=== PATIENT | female | born 1995 | race Caucasian/White ===

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

== ENCOUNTER → 2017-05-13 | Outpatient (CLI) | payer BC, OTHER ==
[~2017-05-13] MED LIST changes: -AUGM875T27 PO; +AUGM875T28 PO; -BUPIVACAINE/EPIN 0.25% 30 ML VIAL As Ordered ONE; +CIPR-249 PO; -CIPR500T89 PO; -CONRAY-60 60% 50ML VIAL (Q9961) As Ordered ONE; -GLUCAGON FOR INJ 1 MG VIAL (J1610) As Ordered ONE; -GLYCOPYRROLATE INJ 0.2 MG/ML 2 ML VIAL As Ordered ONE; -HYDROmorphone HCL 2 MG/ML 1ML VIAL (J1170) As Ordered ONE; +IBUP1TAB7 PO; -IBUP800T23 PO; -KETOROLAC 30 MG/ML VIAL (J1885) IV PRN; -KETOROLAC 60 MG/2 ML VIAL (J1885) As Ordered ONE; -LIDOCAINE 2% INJ 100 MG/5 ML SDV (FOR ANES.) As Ordered ONE; -LR 1,000 ML IV SCH; -METOCLOPRAMIDE INJ 10MG/2ML VIAL (J2765) IV PRN; -MIDAZOLAM INJ 2 MG/2 ML VIAL (J2250) As Ordered ONE; -MORPHINE 2 MG/ML 1ML SYRINGE IV PRN; -NEOSTIGMINE 1MG/ML 5 ML SYRINGE (J2710) As Ordered ONE; -NORCO, ANEXSIA 5/325MG TABLET (HYDROcodone/ACETAMINOPHEN) PO PRN; -ONDANSETRON 4MG/2ML VIAL (J2405) As Ordered ONE; -ONDANSETRON 4MG/2ML VIAL (J2405) IV PRN; -PERCOCET 5MG/325MG TAB PO PRN; +PHEN-500 PO; -PHEN1TAB80 PO; -PROA1AER INH; +PROAAER10 INH; -PROPOFOL 200 MG/20 ML VIAL As Ordered ONE; -ROCURONIUM BROMIDE 50 MG/5 ML VIAL As Ordered ONE; -ceFAZolin SOD 1 GM in D5W MINI-BAG PLUS 50 ML IV ONE; -fentaNYL 100 MCG/2 ML INJECTION (J3010) As Ordered ONE; -fentaNYL 100 MCG/2 ML INJECTION (J3010) IV PRN
== END ==
LOC: M OUTALCOH 08:01
PROVIDERS: ATTEND Psychiatry & Neurology Psychiatry
DX: F11.20 Opioid dependence, uncomplicated (principal)

== ENCOUNTER → 2017-07-16 | Outpatient (REF) | payer BC, OTHER ==
[2017-07-16 14:12] LABS: BASO % 0.5 % (0.0-1.0); EOS # 0.3 10^3/uL (0.0-0.50); EOS % 3.6 % (0.0-3.0); IMMATURE GRANULOCYTE % 0.2 % (0-0); LYMPH # 2.8 10^3/uL (1.5-6.5); MEAN CORPUSCULAR HEMOGLOBIN 29.7 pg (27.0-33.0); MEAN CORPUSCULAR HGB CONC 34.3 g/dl (32.0-36.5); MEAN CORPUSCULAR VOLUME 86.6 fl (80.0-96.0); MONO # 0.6 10^3/uL (0.0-0.8); MONO % 7.1 % (0.0-5.0); NEUTROPHILS % 56.6 % (36.0-66.0); PLATELET COUNT, AUTOMATED 289 10^3/uL (150-450); RED CELL DISTRIBUTION WIDTH 12.8 % (11.5-14.5); WHITE BLOOD COUNT 8.8 10^3/uL (4.0-10.0)
[2017-07-16 14:19] LABS: ALBUMIN 3.7 GM/DL (3.2-5.2); ALBUMIN/GLOBULIN RATIO 0.88 (1.00-1.93); ALKALINE PHOSPHATASE 93 U/L (45-117); ALT/SGPT 30 U/L (12-78); ANION GAP 8 MEQ/L (8-16); AST/SGOT 16 U/L (15-37); BILIRUBIN,TOTAL 0.5 MG/DL (0.2-1.0); BLOOD UREA NITROGEN 15 MG/DL (7-18); CALCIUM LEVEL 8.8 MG/DL (8.5-10.1); CARBON DIOXIDE LEVEL 27 MEQ/L (21-32); CHLORIDE LEVEL 104 MEQ/L (98-107); CREATININE FOR GFR 0.78 MG/DL (0.55-1.02); GLUCOSE, FASTING 91 MG/DL (70-105); POTASSIUM SERUM 4.1 MEQ/L (3.5-5.1); SODIUM LEVEL 139 MEQ/L (136-145); TOTAL PROTEIN 7.9 GM/DL (6.4-8.2)
[2017-07-16 16:11] LABS: ERYTHROCYTE SEDIMENTATION RATE 22 mm/hr (0-20)
[2017-07-17 10:54] LABS: CONTROL LINE MONO RF C INT CTR LINE PRESENT
[2017-07-18 00:07] LABS: Lyme Disease IgG/IgM Antibodie <0.91 ISR (0.00-0.90); Lyme Disease IgM Ab Quantitati <0.80 index (0.00-0.79)
== END ==
LOC: M LABDRWAD 12:51 → M LAB REF 12:51
PROVIDERS: ATTEND Physician Assistant Medical
DX: M79.1 Myalgia (principal)

== ENCOUNTER → 2017-09-09 | Day surgery (SDC) | payer BC ==
[~2017-09-09] VITALS: Ht 160 cm; Wt 102.5 kg
[~2017-09-09] MED LIST changes: +BUPIVACAINE/EPIN 0.5% 30 ML VIAL As Ordered ONE; +CEFAZOLIN SOD 1 GM in APPROPRIATE DILUENT 1 EA IV ONE; +GLYCOPYRROLATE INJ 0.2 MG/ML 2 ML VIAL As Ordered ONE; +IBUP-1114 PO; +KETOROLAC 30 MG/ML VIAL (J1885) IV SCH; +KETOROLAC 60 MG/2 ML VIAL (J1885) As Ordered ONE; +LR 1,000 ML IV ONE; +LR 1,000 ML IV SCH; +MIDAZOLAM INJ 2 MG/2 ML VIAL (J2250) As Ordered ONE; +MULT1TAB10 PO; +NEOSTIGMINE 10 MG/10 ML VIAL (J2710) As Ordered ONE; +NORCO, ANEXSIA 5/325MG TABLET (HYDROcodone/ACETAMINOPHEN) PO PRN; +ONDANSETRON 4MG/2ML VIAL (J2405) As Ordered ONE; +ONDANSETRON 4MG/2ML VIAL (J2405) IV PRN; +PERCOCET 5MG/325MG TAB As Ordered ONE; +PERCOCET 5MG/325MG TAB PO ONE; +PROPOFOL 500 MG/50 ML VIAL As Ordered ONE; +ROCURONIUM BROMIDE 50 MG/5 ML VIAL As Ordered ONE; +dexameTHASONE 4 MG/ML 1ML VIAL (J1100) As Ordered ONE; +fentaNYL 100 MCG/2 ML INJECTION (J3010) As Ordered ONE; +fentaNYL 100 MCG/2 ML INJECTION (J3010) IV PRN
[2017-09-09 08:09] LABS: CONTROL LINE UCG INT CTR LINE PRESENT
--- NOTE | 2017-09-09 09:43 | RO ---
DATE OF PROCEDURE: 09/09/2017 PREOPERATIVE DIAGNOSIS: Incisional hernia at the umbilicus. POSTOPERATIVE DIAGNOSIS: Incisional hernia at the umbilicus. PROCEDURE: Repair of incisional hernia with ventral patch. SURGEON: Dr. Emery Poe. SLOT OPERATIONS MANAGER: ANESTHESIA: General endotracheal anesthesia ESTIMATED BLOOD LOSS: Minimal. FLUID: Crystalloid. BRIEF PROCEDURE SUMMARY: The patient was brought to the operating room and was given general anesthesia. After adequate anesthesia and preoperative antibiotics were given, the patient was prepped and draped in usual sterile fashion. The patient had a previous supraumbilical midline incision that was vertical, however, as this point given the size of the fascial defect and the evidence of the hernia at the supraumbilical site, the curvilinear incision was made with skin knife. Electrocautery was used to cut through dermis and underlying subcutaneous tissue down to the fascia itself and circumferentially the hernia sac was transected using electrocautery. There was omentum incarcerated within the hernia itself which was ligated at its base with heavy Vicryl ties and reduced into the abdomen. The fascia then was closed after placing a ventral patch into the peritoneal cavity, making sure this was abutting the peritoneum posteriorly and the tails of mesh were sutured medially and laterally. The incision was closed vertically with three interrupted [id number] #0 Ethibond sutures and the umbilicus was sutured to the fascia and the dermis was closed with #3-0 Vicryl. #4-0 Vicryl was used to close the skin. Steri-Strips and a dry sterile dressing was applied. The patient was awakened, extubated, brought to recovery room awake, alert, hemodynamically stable. Sponge and needle counts correct times two.
[2017-09-09 12:00] VITALS: BP 122/77
== END | disposition home or self-care (01) ==
LOC: M SDC 07:21
PROVIDERS: ATTEND Surgery
DX: K43.2 Incisional hernia without obstruction or gangrene (principal); J45.909 Unspecified asthma, uncomplicated; R56.9 Unspecified convulsions; K21.9 Gastro-esophageal reflux disease without esophagitis; D64.9 Anemia, unspecified; R51 Headache; T88.59XD Other complications of anesthesia, subsequent encounter; Z79.3 Long term (current) use of hormonal contraceptives; Z72.0 Tobacco use

== ENCOUNTER 2017-10-23 11:29 | Emergency (ER) | payer BC, OTHER ==
[2017-10-23] MEDS: NS 1,000 ML IV (13:34)
[2017-10-23 13:57] LABS: HEMATOCRIT 39.8 % (36.0-47.0); HEMOGLOBIN 13.6 g/dl (12.0-16.0); MEAN CORPUSCULAR HEMOGLOBIN 29.5 pg (27.0-33.0); MEAN CORPUSCULAR HGB CONC 34.2 g/dl (32.0-36.5); MEAN CORPUSCULAR VOLUME 86.3 fl (80.0-96.0); PLATELET COUNT, AUTOMATED 168 10^3/uL (150-450); RED BLOOD COUNT 4.61 10^6/uL (4.00-5.40); RED CELL DISTRIBUTION WIDTH 12.8 % (11.5-14.5); WHITE BLOOD COUNT 4.7 10^3/uL (4.0-10.0)
[2017-10-23 14:01] LABS: POSITIVE MORPH POS FLAG
[2017-10-23 14:02] LABS: ADD MANUAL DIFFER YES; DIFF SLIDE NUMBER 244
[2017-10-23] MEDS: KETOROLAC 30 MG/ML VIAL (J1885) IV (14:05)
[2017-10-23] MEDS: ONDANSETRON 4MG/2ML VIAL (J2405) IV (14:05)
[2017-10-23 14:11] LABS: INR 0.96; PROTHROMBIN TIME 12.9 SECONDS (12.4-14.5)
[2017-10-23 14:20] LABS: CONTROL LINE HCG INT CTR LINE PRESENT; HCG, SERUM QUALITATIVE NEGATIVE (NEGATIVE)
[2017-10-23 14:27] LABS: ATYPICAL LYMPH 4 % (0-5); BASOPHILS 2 % (0-4); EOSINOPHILS 3 % (0-5); LYMPHOCYTES 42 % (16-52); MONOCYTES 6 % (0-8); NEUTROPHILS 43 % (35-75); PLATELET ESTIMATE NORMAL (NORMAL)
[2017-10-23 14:28] LABS: ALBUMIN 3.9 GM/DL (3.2-5.2); ALBUMIN/GLOBULIN RATIO 0.91 (1.00-1.93); ALKALINE PHOSPHATASE 100 U/L (45-117); ALT/SGPT 68 U/L (12-78); ANION GAP 7 MEQ/L (8-16); AST/SGOT 36 U/L (7-37); BILIRUBIN,DIRECT 0.2 MG/DL (0.0-0.2); BILIRUBIN,TOTAL 0.9 MG/DL (0.2-1.0); BLOOD UREA NITROGEN 8 MG/DL (7-18); CALCIUM LEVEL 8.9 MG/DL (8.5-10.1); CARBON DIOXIDE LEVEL 26 MEQ/L (21-32); CHLORIDE LEVEL 105 MEQ/L (98-107); CREATININE FOR GFR 0.88 MG/DL (0.55-1.30); GLUCOSE, FASTING 96 MG/DL (70-100); LIPASE 93 U/L (73-393); POTASSIUM SERUM 3.6 MEQ/L (3.5-5.1); SODIUM LEVEL 138 MEQ/L (136-145); TOTAL PROTEIN 8.2 GM/DL (6.4-8.2)
[2017-10-23 16:16] LABS: KETONE, URINE AUTO RFX NEGATIVE (NEGATIVE); LEUKOCYTE ESTERASE UR AUTO RFX 1+ (NEGATIVE); MUCUS, URINE RFX LARGE (NEGATIVE); NITRITE, URINE AUTO RFX NEGATIVE (NEGATIVE); RBC, URINE AUTO RFX 3 /HPF (0-3); SPECIFIC GRAVITY UR AUTO RFX 1.027 (1.002-1.035); SQUAM EPITHELIAL CELL UR AURFX 13 /HPF (0-6); WBC, URINE AUTO RFX 4 /HPF (0-3)
== END 2017-10-23 16:43 | disposition home or self-care (01) ==
LOC: M ED 11:29
DX: N39.0 Urinary tract infection, site not specified (principal); F17.200 Nicotine dependence, unspecified, uncomplicated
CPT/HCPCS: J2405

== ENCOUNTER 2017-11-11 18:14 | Emergency (ER) | payer BC, OTHER ==
[2017-11-11 19:38] LABS: HEMATOCRIT 34.8 % (36.0-47.0); HEMOGLOBIN 11.4 g/dl (12.0-16.0); MEAN CORPUSCULAR HEMOGLOBIN 29.8 pg (27.0-33.0); MEAN CORPUSCULAR HGB CONC 32.8 g/dl (32.0-36.5); MEAN CORPUSCULAR VOLUME 90.9 fl (80.0-96.0); PLATELET COUNT, AUTOMATED 153 10^3/uL (150-450); RED BLOOD COUNT 3.83 10^6/uL (4.00-5.40); RED CELL DISTRIBUTION WIDTH 15.3 % (11.5-14.5); WHITE BLOOD COUNT 7.9 10^3/uL (4.0-10.0)
[2017-11-11 19:39] LABS: ADD MANUAL DIFFER YES; DIFF SLIDE NUMBER 343; POSITIVE DIFF POS FLAG; POSITIVE MORPH POS FLAG
[2017-11-11 19:50] LABS: D-DIMER QUANT 848.3 ng/ml (<500)
[2017-11-11 20:02] LABS: ATYPICAL LYMPH 3 % (0-5); BANDS 1 % (< 11); EOSINOPHILS 2 % (0-5); LYMPHOCYTES 62 % (16-52); MONOCYTES 6 % (0-8); NEUTROPHILS 26 % (35-75)
[2017-11-11 20:03] LABS: PLATELET ESTIMATE NORMAL (NORMAL)
[2017-11-11 20:15] LABS: ALBUMIN 3.6 GM/DL (3.2-5.2); ALBUMIN/GLOBULIN RATIO 0.92 (1.00-1.93); ALKALINE PHOSPHATASE 95 U/L (45-117); ALT/SGPT 30 U/L (12-78); ANION GAP 9 MEQ/L (8-16); AST/SGOT 32 U/L (7-37); BILIRUBIN,TOTAL 0.9 MG/DL (0.2-1.0); BLOOD UREA NITROGEN 12 MG/DL (7-18); CALCIUM LEVEL 8.7 MG/DL (8.5-10.1); CARBON DIOXIDE LEVEL 26 MEQ/L (21-32); CHLORIDE LEVEL 107 MEQ/L (98-107); CREATININE FOR GFR 0.96 MG/DL (0.55-1.30); GLUCOSE, FASTING 86 MG/DL (70-100); POTASSIUM SERUM 3.8 MEQ/L (3.5-5.1); SODIUM LEVEL 142 MEQ/L (136-145); TOTAL PROTEIN 7.5 GM/DL (6.4-8.2)
[2017-11-11] MEDS ORDERED: ISOVUE-370 76% 100ML VIAL (Q9967) As Ordered (21:15)
[2017-11-11] MEDS: ALBUTEROL SULFATE 2.5 MG/0.5 ML INH NEB SOLN NEB (22:24)
[2017-11-11] MEDS: IBUPROFEN 600 MG TAB PO (22:38)
[2017-11-11] MEDS: PERCOCET 5MG/325MG TAB PO (22:39)
== END 2017-11-11 22:43 | disposition home or self-care (01) ==
LOC: M ED 18:14
DX: J45.909 Unspecified asthma, uncomplicated (principal); R91.8 Other nonspecific abnormal finding of lung field; R00.0 Tachycardia, unspecified; R06.02 Shortness of breath; F17.200 Nicotine dependence, unspecified, uncomplicated; Z79.3 Long term (current) use of hormonal contraceptives
CPT/HCPCS: Q9967

== ENCOUNTER 2018-03-08 14:16 | Emergency (ER) | payer OTHER, BC ==
[2018-03-08] MEDS: KETOROLAC TROMETHAMINE 10 MG TAB PO (15:48)
== END 2018-03-08 17:13 | disposition home or self-care (01) ==
LOC: M ED 14:16
DX: S93.401A Sprain of unspecified ligament of right ankle, initial encounter (principal); S80.01XA Contusion of right knee, initial encounter; V13.0XXA Pedal cycle driver injured in collision with car, pick-up truck or van in nontraffic accident, initial encounter; Y92.410 Unspecified street and highway as the place of occurrence of the external cause; J45.909 Unspecified asthma, uncomplicated; G47.33 Obstructive sleep apnea (adult) (pediatric); M54.9 Dorsalgia, unspecified; R56.9 Unspecified convulsions; Z91.030 Bee allergy status; Z79.899 Other long term (current) drug therapy
CPT/HCPCS: 71101

== ENCOUNTER 2018-05-08 19:38 | Emergency (ER) | payer BC, MEDICAID, SELFPAY ==
[2018-05-09 00:32] LABS: KETONE, URINE AUTO RFX NEGATIVE (NEGATIVE); LEUKOCYTE ESTERASE UR AUTO RFX NEGATIVE (NEGATIVE); MUCUS, URINE RFX LARGE (NEGATIVE); NITRITE, URINE AUTO RFX NEGATIVE (NEGATIVE); RBC, URINE AUTO RFX 1 /HPF (0-3); SPECIFIC GRAVITY UR AUTO RFX 1.029 (1.002-1.035); SQUAM EPITHELIAL CELL UR AURFX 2 /HPF (0-6); WBC, URINE AUTO RFX 4 /HPF (0-3)
[2018-05-09] MEDS: ONDANSETRON 4MG/2ML VIAL (J2405) IV ×2 (00:34)
[2018-05-09] MEDS: NS 1,000 ML IV ×2 (00:34)
[2018-05-09 00:39] LABS: BASO % 0.5 % (0.0-1.0); EOS # 0.2 10^3/uL (0.0-0.50); EOS % 2.1 % (0.0-3.0); HEMATOCRIT 37.3 % (36.0-47.0); HEMOGLOBIN 12.8 g/dl (12.0-15.5); IMMATURE GRANULOCYTE % 0.4 % (0-3.0); LYMPH # 3.9 10^3/uL (1.5-6.5); LYMPH % 50.7 % (24.0-44.0); MEAN CORPUSCULAR HEMOGLOBIN 30.3 pg (27.0-33.0); MEAN CORPUSCULAR HGB CONC 34.3 g/dl (32.0-36.5); MEAN CORPUSCULAR VOLUME 88.4 fl (80.0-96.0); MONO # 0.7 10^3/uL (0.0-0.8); MONO % 9.3 % (0.0-5.0); NEUTROPHILS # 2.8 10^3/uL (1.8-7.7); PLATELET COUNT, AUTOMATED 195 10^3/uL (150-450); RED BLOOD COUNT 4.22 10^6/uL (4.00-5.40); RED CELL DISTRIBUTION WIDTH 12.6 % (11.5-14.5); WHITE BLOOD COUNT 7.7 10^3/uL (4.0-10.0)
[2018-05-09 01:06] LABS: ALBUMIN 3.7 GM/DL (3.2-5.2); ALBUMIN/GLOBULIN RATIO 1.06 (1.00-1.93); ALKALINE PHOSPHATASE 62 U/L (45-117); ALT/SGPT 19 U/L (12-78); AMYLASE 39 U/L (25-115); ANION GAP 7 MEQ/L (8-16); AST/SGOT 9 U/L (7-37); BILIRUBIN,DIRECT 0.1 MG/DL (0.0-0.2); BILIRUBIN,TOTAL 0.7 MG/DL (0.2-1.0); BLOOD UREA NITROGEN 11 MG/DL (7-18); CALCIUM LEVEL 8.8 MG/DL (8.5-10.1); CARBON DIOXIDE LEVEL 29 MEQ/L (21-32); CHLORIDE LEVEL 109 MEQ/L (98-107); CREATININE FOR GFR 0.76 MG/DL (0.55-1.30); GLUCOSE, FASTING 85 MG/DL (70-100); LIPASE 134 U/L (73-393); POTASSIUM SERUM 3.5 MEQ/L (3.5-5.1); SODIUM LEVEL 145 MEQ/L (136-145); TOTAL PROTEIN 7.2 GM/DL (6.4-8.2)
[2018-05-09] MEDS: KETOROLAC 30 MG/ML VIAL (J1885) IV ×2 (01:24)
[2018-05-09] MEDS ORDERED: ISOVUE-370 76% 100ML VIAL (Q9967) As Ordered ×2 (01:47)
== END 2018-05-09 03:50 | disposition left against medical advice (07) ==
LOC: M ED 19:38
DX: R10.9 Unspecified abdominal pain (principal); R11.2 Nausea with vomiting, unspecified; R19.7 Diarrhea, unspecified; J45.909 Unspecified asthma, uncomplicated; M54.9 Dorsalgia, unspecified; G43.909 Migraine, unspecified, not intractable, without status migrainosus; Z87.891 Personal history of nicotine dependence; Z91.030 Bee allergy status
CPT/HCPCS: J2405

== ENCOUNTER 2018-06-30 07:03 | Day surgery (SDC) | payer BC, OTHER ==
[~2018-06-30 07:03] MED LIST changes: -ALBU17IN INH; -AUGM875T28 PO; -BENA25CA2 PO; -BUPIVACAINE/EPIN 0.5% 30 ML VIAL As Ordered ONE; -CEFAZOLIN SOD 1 GM in APPROPRIATE DILUENT 1 EA IV ONE; -CIPR-249 PO; -CYCL10TA PO; -FISH1000 PO; -GLYCOPYRROLATE INJ 0.2 MG/ML 2 ML VIAL As Ordered ONE; -IBUP-1114 PO; -IBUP1TAB7 PO; -IBUP200T45 PO; -IRON65TA PO; -KETOROLAC 30 MG/ML VIAL (J1885) IV SCH; -KETOROLAC 60 MG/2 ML VIAL (J1885) As Ordered ONE; +LIDOCAINE 1% MDV 20ML VIAL SQ; -LR 1,000 ML IV ONE; -LR 1,000 ML IV SCH; -MAGN30TA2 PO; -MIDAZOLAM INJ 2 MG/2 ML VIAL (J2250) As Ordered ONE; -MULT1TAB10 PO; -MULT1TAB8 PO; -NEOSTIGMINE 10 MG/10 ML VIAL (J2710) As Ordered ONE; -NO HISTORICAL MEDS; -NORCO, ANEXSIA 5/325MG TABLET (HYDROcodone/ACETAMINOPHEN) PO PRN; -OMEG100011 PO; -ONDANSETRON 4MG/2ML VIAL (J2405) As Ordered ONE; -ONDANSETRON 4MG/2ML VIAL (J2405) IV PRN; -OXYC1TAB23 PO; -PERCOCET 5MG/325MG TAB As Ordered ONE; -PERCOCET 5MG/325MG TAB PO ONE; -PHEN-500 PO; -PROAAER10 INH; -PROPOFOL 500 MG/50 ML VIAL As Ordered ONE; -RIBO50CA PO; -ROCURONIUM BROMIDE 50 MG/5 ML VIAL As Ordered ONE; -XULA1DIS TD; -dexameTHASONE 4 MG/ML 1ML VIAL (J1100) As Ordered ONE; -fentaNYL 100 MCG/2 ML INJECTION (J3010) As Ordered ONE; -fentaNYL 100 MCG/2 ML INJECTION (J3010) IV PRN; -toradol PO
[2018-06-30 07:44] LABS: CONTROL LINE UCG INT CTR LINE PRESENT; URINE PREG TEST NEGATIVE (NEGATIVE)
[2018-06-30] MEDS: LR 1,000 ML IV (07:50)
[2018-06-30] MEDS: BUPIVACAINE HCL 0.25% 30 ML VIAL As Ordered (08:14)
[2018-06-30] MEDS ORDERED: ceFAZolin 1GM INJ (J0690 PER 500MG) As Ordered (08:31)
[2018-06-30] MEDS: ceFAZolin SOD 1 GM in D5W MINI-BAG PLUS 50 ML IV (08:40)
[2018-06-30] MEDS ORDERED: ONDANSETRON 4MG/2ML VIAL (J2405) As Ordered (08:54)
[2018-06-30] MEDS ORDERED: NEOSTIGMINE 10 MG/10 ML VIAL (J2710) As Ordered (08:54)
[2018-06-30] MEDS ORDERED: dexameTHASONE 4 MG/ML 1ML VIAL (J1100) As Ordered (08:54)
[2018-06-30] MEDS ORDERED: KETOROLAC 60 MG/2 ML VIAL (J1885) As Ordered (08:54)
[2018-06-30] MEDS ORDERED: LIDOCAINE 2% INJ 100 MG/5 ML SDV (FOR ANES.) As Ordered (08:54)
[2018-06-30] MEDS ORDERED: MIDAZOLAM INJ 2 MG/2 ML VIAL (J2250) As Ordered (08:54)
[2018-06-30] MEDS ORDERED: PROPOFOL 200 MG/20 ML VIAL As Ordered ×2 (08:54→09:41)
[2018-06-30] MEDS ORDERED: ROCURONIUM BROMIDE 50 MG/5 ML VIAL As Ordered (08:54)
[2018-06-30] MEDS ORDERED: fentaNYL 250 MCG/5 ML INJECTION (J3010) As Ordered (08:54)
[2018-06-30] MEDS ORDERED: GLYCOPYRROLATE INJ 0.2 MG/ML 2 ML VIAL As Ordered ×2 (08:54)
[2018-06-30] MEDS: BUPIVACAINE/EPIN 0.25% 30 ML VIAL As Ordered (08:58)
[2018-06-30] MEDS: BUPIVACAINE LIPOSOME/PF 1.3% 20 ML VIAL (13.3MG/ML)(EXPAREL) As Ordered (09:20)
[2018-06-30] MEDS: BUPIVACAINE HCL 0.25% 10 ML VIAL As Ordered (09:20)
[2018-06-30] MEDS ORDERED: fentaNYL 100 MCG/2 ML INJECTION (J3010) IV (10:30)
[2018-06-30] MEDS ORDERED: LR 1,000 ML IV ×2 (10:30)
[2018-06-30] MEDS ORDERED: ONDANSETRON 4MG/2ML VIAL (J2405) IV ×2 (10:30→10:45)
[2018-06-30] MEDS ORDERED: PERCOCET 5MG/325MG TAB PO (10:30)
[2018-06-30] MEDS ORDERED: MORPHINE 4 MG/ML 1ML VIAL/SYRINGE (J2270) IV (10:45)
[2018-06-30] MEDS: NORCO, ANEXSIA 5/325MG TABLET (HYDROcodone/ACETAMINOPHEN) PO (11:59)
== END 2018-06-30 12:24 | disposition home or self-care (01) ==
LOC: M SDC 07:03
DX: K43.2 Incisional hernia without obstruction or gangrene (principal); J45.909 Unspecified asthma, uncomplicated; K21.9 Gastro-esophageal reflux disease without esophagitis; D64.9 Anemia, unspecified; G43.909 Migraine, unspecified, not intractable, without status migrainosus; R56.9 Unspecified convulsions; F12.90 Cannabis use, unspecified, uncomplicated; R06.83 Snoring; T88.59XD Other complications of anesthesia, subsequent encounter; Z91.030 Bee allergy status; Z87.448 Personal history of other diseases of urinary system; Z87.891 Personal history of nicotine dependence
CPT/HCPCS: 49654

== ENCOUNTER 2018-11-21 08:28 | Emergency (ER) | payer BC, OTHER ==
[~2018-11-21] VITALS: Ht 160 cm; Wt 75.0 kg
[2018-11-21 08:28] VITALS: BP 121/68
[~2018-11-21 08:28] MED LIST changes: +ALBU17IN INH; +AUGM875T28 PO; +BENA25CA2 PO; +CIPR-249 PO; +CYCL10TA PO; +FISH1000 PO; +IBUP-1114 PO; +IBUP1TAB7 PO; +IBUP200T45 PO; +IRON65TA PO; -LIDOCAINE 1% MDV 20ML VIAL SQ; +MACR100C43 PO; +MAGN30TA2 PO; +MOBI4TAB PO; +MULT1TAB10 PO; +MULT1TAB8 PO; +NO HISTORICAL MEDS; +OMEG100011 PO; +OXYC1TAB23 PO; +PHEN-500 PO; +PROAAER10 INH; +PYRI1TAB5 PO; +RIBO50CA PO; +SYMB16INH INH; +VENTAER INH; +XULA1DIS TD; +ZITHTAB PO; +toradol PO
[2018-11-21] MEDS ORDERED: CENTCHW4 PO (08:32)
--- NOTE | 2018-11-21 09:42 | REP ---
Clinical: Trauma. Technique: AP and lateral views of the right tibia / fibula. Findings: No acute fracture dislocation. Skeletal structures, joint spaces, and surrounding soft tissues appear normal. No subcutaneous emphysema or radiodense foreign body. Impression: Normal right tibia / fibula radiographs. Electronically Signed by Vik Farrell MD 11/21/2018 09:32 A
--- NOTE | 2018-11-21 09:44 | REP ---
Clinical: Trauma . Technique: AP, lateral, bilateral oblique views right ankle . Findings: No acute fracture or dislocation. Skeletal structures and joint spaces are intact and normal. Ankle mortise appears stable. No subcutaneous emphysema or radiodense foreign body. Impression: Normal right ankle radiograph series. Electronically Signed by Vik Farrell MD 11/21/2018 09:35 A
[2018-11-21] MEDS ORDERED: IBUPROFEN 600 MG TAB PO ONE (09:45)
--- NOTE | 2018-11-21 09:45 | REP ---
Clinical: Trauma. Technique: AP, lateral, bilateral oblique views right foot . Findings: The osseous structures and joint spaces are intact and normal. There is no evidence for acute fracture or dislocation. Surrounding soft tissues are unremarkable. No subcutaneous emphysema or radiodense foreign body. Impression: Normal right foot series . No acute fracture or dislocation. Electronically Signed by Vik Farrell MD 11/21/2018 09:36 A
== END 2018-11-21 10:26 | disposition home or self-care (01) ==
LOC: M ED 08:28
DX: S93.401A Sprain of unspecified ligament of right ankle, initial encounter (principal); S93.601A Unspecified sprain of right foot, initial encounter; S83.91XA Sprain of unspecified site of right knee, initial encounter; W00.0XXA Fall on same level due to ice and snow, initial encounter; Y92.89 Other specified places as the place of occurrence of the external cause; G43.909 Migraine, unspecified, not intractable, without status migrainosus; F32.9 Major depressive disorder, single episode, unspecified; Z87.440 Personal history of urinary (tract) infections; Z91.030 Bee allergy status; Z87.828 Personal history of other (healed) physical injury and trauma; Z79.3 Long term (current) use of hormonal contraceptives

== ENCOUNTER → 2018-12-02 | Outpatient (REF) | payer BC, OTHER ==
[~2018-12-02] MED LIST changes: +CENTCHW4 PO
[2018-12-02 12:48] LABS: BASO # 0.1 10^3/uL (0.0-0.2); BASO % 0.9 % (0.0-1.0); EOS # 0.2 10^3/uL (0.0-0.50); EOS % 2.5 % (0.0-3.0); HEMATOCRIT 40.6 % (36.0-47.0); HEMOGLOBIN 13.4 g/dl (12.0-15.5); LYMPH # 2.1 10^3/uL (1.5-6.5); LYMPH % 30.7 % (24.0-44.0); MEAN CORPUSCULAR HEMOGLOBIN 29.7 pg (27.0-33.0); MONO # 0.5 10^3/uL (0.0-0.8); MONO % 7.8 % (0.0-5.0); NEUTROPHILS % 57.8 % (36.0-66.0); PLATELET COUNT, AUTOMATED 249 10^3/uL (150-450); RED BLOOD COUNT 4.51 10^6/uL (4.00-5.40); WHITE BLOOD COUNT 6.9 10^3/uL (4.0-10.0)
[2018-12-02 14:04] LABS: ALT/SGPT 15 U/L (12-78); BILIRUBIN,TOTAL 0.8 MG/DL (0.2-1.0); BLOOD UREA NITROGEN 14 MG/DL (7-18); CALCIUM LEVEL 8.3 MG/DL (8.5-10.1); CARBON DIOXIDE LEVEL 24 MEQ/L (21-32); CHLORIDE LEVEL 108 MEQ/L (98-107); CREATININE FOR GFR 0.83 MG/DL (0.55-1.30); GLOMERULAR FILTRATION RATE > 60.0 (>60); GLUCOSE, FASTING 98 MG/DL (70-100); POTASSIUM SERUM 4.3 MEQ/L (3.5-5.1); SODIUM LEVEL 140 MEQ/L (136-145); TOTAL PROTEIN 7.3 GM/DL (6.4-8.2)
== END ==
LOC: M LAB REF 12:19
PROVIDERS: ATTEND Family Medicine Addiction Medicine
DX: R55 Syncope and collapse (principal)

== ENCOUNTER 2019-01-13 12:22 | Emergency (ER) | payer OTHER, BC ==
[~2019-01-13] VITALS: Ht 160 cm; Wt 69.4 kg
[2019-01-13] MEDS ORDERED: NS 1,000 ML IV ONE (13:45)
[2019-01-13] MEDS ORDERED: METOCLOPRAMIDE INJ 10MG/2ML VIAL (J2765) IV ONE (13:45)
[2019-01-13 14:31] LABS: BASO % 0.3 % (0.0-1.0); EOS # 0.1 10^3/uL (0.0-0.50); EOS % 0.9 % (0.0-3.0); HEMATOCRIT 46.1 % (36.0-47.0); HEMOGLOBIN 15.5 g/dl (12.0-15.5); LYMPH # 3.1 10^3/uL (1.5-6.5); LYMPH % 34.8 % (24.0-44.0); MEAN CORPUSCULAR HEMOGLOBIN 30.1 pg (27.0-33.0); MEAN CORPUSCULAR HGB CONC 33.6 g/dl (32.0-36.5); MEAN CORPUSCULAR VOLUME 89.5 fl (80.0-96.0); MONO # 0.6 10^3/uL (0.0-0.8); MONO % 6.2 % (0.0-5.0); NEUTROPHILS # 5.2 10^3/uL (1.8-7.7); NEUTROPHILS % 57.5 % (36.0-66.0); PLATELET COUNT, AUTOMATED 259 10^3/uL (150-450); RED BLOOD COUNT 5.15 10^6/uL (4.00-5.40)
[2019-01-13 14:48] LABS: ALBUMIN 4.9 GM/DL (3.2-5.2); ALT/SGPT 19 U/L (12-78); BILIRUBIN,DIRECT 0.2 MG/DL (0.0-0.2); BILIRUBIN,TOTAL 1.2 MG/DL (0.2-1.0); BLOOD UREA NITROGEN 15 MG/DL (7-18); CALCIUM LEVEL 9.3 MG/DL (8.5-10.1); CARBON DIOXIDE LEVEL 28 MEQ/L (21-32); CHLORIDE LEVEL 106 MEQ/L (98-107); CREATININE FOR GFR 0.91 MG/DL (0.55-1.30); GLOMERULAR FILTRATION RATE > 60.0 (>60); GLUCOSE, FASTING 86 MG/DL (70-100); LIPASE 104 U/L (73-393); POTASSIUM SERUM 3.3 MEQ/L (3.5-5.1); SODIUM LEVEL 140 MEQ/L (136-145); TOTAL PROTEIN 8.9 GM/DL (6.4-8.2)
--- NOTE | 2019-01-13 15:40 | REP ---
ABDOMINAL SERIES: Supine and erect views of the abdomen demonstrate no evidence of free intraperitoneal air and no compelling evidence for obstruction. A single mildly dilated small bowel loop in the left mid abdomen is nonspecific. No abnormal calcifications are seen. There are metallic clips in the right upper quadrant. An accompanying view of the chest demonstrates no acute infiltrate. Heart is normal in size and the mediastinal silhouette is unremarkable. IMPRESSION: No free air obstruction. Single mildly dilated small bowel loop in the left mid abdomen could represent a mild ileus. Lungs are clear. Electronically Signed by Drew Lofton MD 01/14/2019 11:01 A
[2019-01-13] MEDS ORDERED: ONDA4TAB6 PO (15:48)
[2019-01-13 15:56] VITALS: BP 117/58
== END 2019-01-13 15:57 | disposition home or self-care (01) ==
LOC: M ED 12:22
DX: K52.9 Noninfective gastroenteritis and colitis, unspecified (principal); G43.909 Migraine, unspecified, not intractable, without status migrainosus; Z87.891 Personal history of nicotine dependence; Z79.899 Other long term (current) drug therapy; Z91.030 Bee allergy status
CPT/HCPCS: 74021; 80048; 80076; 81001; 81025; 83690; 85025; 96374; 99284; J2765

== ENCOUNTER → 2019-01-15 | Outpatient (REF) | payer BC ==
[~2019-01-15] MED LIST changes: +ONDA4TAB6 PO
[2019-01-15 21:47] LABS: CHLAMYDIA DNA AMPLIFICATION NEGATIVE (NEGATIVE); GC DNA AMPLIFICATION NEGATIVE (NEGATIVE)
== END ==
LOC: M LAB REF 16:36
PROVIDERS: ATTEND Family Medicine Addiction Medicine
DX: Z11.3 Encounter for screening for infections with a predominantly sexual mode of transmission (principal); Z12.4 Encounter for screening for malignant neoplasm of cervix
CPT/HCPCS: 87491; 87591; G0123

== ENCOUNTER 2019-03-23 10:46 | Emergency (ER) | payer BC, MEDICAID ==
[~2019-03-23] VITALS: Ht 160 cm; Wt 66.4 kg
[2019-03-23] MEDS ORDERED: NS 1,000 ML IV ONE (12:00)
[2019-03-23] MEDS ORDERED: ONDANSETRON 4MG/2ML VIAL (J2405) IV ONE (12:00)
[2019-03-23 12:17] LABS: BASO % 0.4 % (0.0-1.0); EOS % 0.1 % (0.0-3.0); HEMATOCRIT 37.8 % (36.0-47.0); HEMOGLOBIN 12.9 g/dl (12.0-15.5); MEAN CORPUSCULAR HGB CONC 34.1 g/dl (32.0-36.5); MEAN CORPUSCULAR VOLUME 87.9 fl (80.0-96.0); MONO # 0.6 10^3/uL (0.0-0.8); MONO % 6.5 % (0.0-5.0); NEUTROPHILS # 5.4 10^3/uL (1.8-7.7); NEUTROPHILS % 59.7 % (36.0-66.0); PLATELET COUNT, AUTOMATED 193 10^3/uL (150-450); WHITE BLOOD COUNT 9.1 10^3/uL (4.0-10.0)
[2019-03-23 12:24] LABS: HCG, SERUM QUALITATIVE POSITIVE (NEGATIVE)
[2019-03-23 12:52] LABS: ALBUMIN 3.8 GM/DL (3.2-5.2); ALT/SGPT 17 U/L (12-78); BILIRUBIN,TOTAL 0.9 MG/DL (0.2-1.0); BLOOD UREA NITROGEN 12 MG/DL (7-18); CARBON DIOXIDE LEVEL 16 MEQ/L (21-32); CHLORIDE LEVEL 111 MEQ/L (98-107); CREATININE FOR GFR 0.72 MG/DL (0.55-1.30); GLOMERULAR FILTRATION RATE > 60.0 (>60); GLUCOSE, FASTING 79 MG/DL (70-100); POTASSIUM SERUM 4.1 MEQ/L (3.5-5.1); SODIUM LEVEL 138 MEQ/L (136-145); TOTAL PROTEIN 6.9 GM/DL (6.4-8.2)
[2019-03-23 13:01] LABS: APPEARANCE, URINE HAZY (CLEAR); BACTERIA, URINE AUTO 1+ (NEGATIVE); BILIRUBIN, URINE AUTO NEGATIVE (NEGATIVE); BLOOD, URINE BLOOD NEGATIVE (NEGATIVE); COLOR, URINE YELLOW (YELLOW); GLUCOSE, URINE (UA) AUTO NEGATIVE (NEGATIVE); KETONE, URINE AUTO NEGATIVE (NEGATIVE); LEUKOCYTE ESTERASE, URINE AUTO NEGATIVE (NEGATIVE); NITRITE, URINE AUTO NEGATIVE (NEGATIVE); PROTEIN, URINE AUTO NEGATIVE (NEGATIVE); RBC, URINE AUTO 2 /HPF (0-3); SPECIFIC GRAVITY URINE AUTO 1.017 (1.002-1.035); SQUAMOUS EPITHELIAL CELL UR AU 4 /HPF (0-6); UROBILINOGEN, URINE AUTO 0.2 mg/dL (0.0-2.0); WBC, URINE AUTO 2 /HPF (0-3)
[2019-03-23] MEDS ORDERED: ONDA4TAB6 PO (13:08)
[2019-03-23 13:15] VITALS: BP 123/74
== END 2019-03-23 13:21 | disposition home or self-care (01) ==
LOC: M ED 10:46
DX: O21.9 Vomiting of pregnancy, unspecified (principal); O99.611 Diseases of the digestive system complicating pregnancy, first trimester; K22.6 Gastro-esophageal laceration-hemorrhage syndrome; O99.511 Diseases of the respiratory system complicating pregnancy, first trimester; J45.909 Unspecified asthma, uncomplicated; Z91.030 Bee allergy status; Z3A.00 Weeks of gestation of pregnancy not specified
CPT/HCPCS: 36415; 80053; 81001; 84703; 85025; 87086; 96361; 96374; 99284; J2405

== ENCOUNTER → 2019-05-12 | Outpatient (CLI) | payer BC, MEDICAID ==
[2019-05-12 16:25] LABS: BASO % 0.3 % (0.0-1.0); EOS % 0.2 % (0.0-3.0); HEMATOCRIT 39.5 % (36.0-47.0); HEMOGLOBIN 13.4 g/dl (12.0-15.5); LYMPH # 2.1 10^3/uL (1.5-6.5); LYMPH % 24.2 % (24.0-44.0); MEAN CORPUSCULAR HEMOGLOBIN 30.7 pg (27.0-33.0); MEAN CORPUSCULAR HGB CONC 33.9 g/dl (32.0-36.5); MEAN CORPUSCULAR VOLUME 90.6 fl (80.0-96.0); MONO # 0.6 10^3/uL (0.0-0.8); MONO % 6.6 % (0.0-5.0); NEUTROPHILS % 68.4 % (36.0-66.0); PLATELET COUNT, AUTOMATED 202 10^3/uL (150-450); RED BLOOD COUNT 4.36 10^6/uL (4.00-5.40); WHITE BLOOD COUNT 8.8 10^3/uL (4.0-10.0)
[2019-05-12 16:41] LABS: ALBUMIN 3.5 GM/DL (3.2-5.2); ALT/SGPT 13 U/L (12-78); BILIRUBIN,TOTAL 0.9 MG/DL (0.2-1.0); BLOOD UREA NITROGEN 10 MG/DL (7-18); CALCIUM LEVEL 8.7 MG/DL (8.5-10.1); CARBON DIOXIDE LEVEL 25 MEQ/L (21-32); CHLORIDE LEVEL 106 MEQ/L (98-107); CREATININE FOR GFR 0.57 MG/DL (0.55-1.30); GLOMERULAR FILTRATION RATE > 60.0 (>60); GLUCOSE, FASTING 76 MG/DL (70-100); POTASSIUM SERUM 3.9 MEQ/L (3.5-5.1); SODIUM LEVEL 138 MEQ/L (136-145); TOTAL PROTEIN 6.9 GM/DL (6.4-8.2)
[2019-05-12 17:30] LABS: HIV 1&2 SCREEN CENTAUR NEGATIVE (NEGATIVE)
[2019-05-12 17:37] LABS: CHLAMYDIA DNA AMPLIFICATION NEGATIVE (NEGATIVE); GC DNA AMPLIFICATION NEGATIVE (NEGATIVE)
[2019-05-14 10:09] LABS: RUBELLA IgG QUALITATIVE IMMUNE (IMMUNE)
[2019-05-14 10:38] LABS: HEPATITIS C VIRUS ABY INDEX 0.1 INDEX (<0.8)
== END ==
LOC: M LAB 14:26
PROVIDERS: ATTEND Advanced Practice Midwife
DX: Z34.81 Encounter for supervision of other normal pregnancy, first trimester (principal); Z3A.09 9 weeks gestation of pregnancy

== ENCOUNTER → 2019-06-09 | Outpatient (CLI) | payer BC, MEDICAID ==
[~2019-06-09] MED LIST changes: +PREN29TA4 PO
--- NOTE | 2019-06-10 02:52 | REP ---
Clinical: Anatomical evaluation. Comparison: None . Findings: Examination demonstrates a single live intrauterine in cephalic presentation. motion is identified by technologist. Placenta is noted anterior and grade zero without evidence for placenta previa or abruption. Amniotic fluid volume is normal. Cervix measures 4.1 cm in length and appears closed. No evidence for nuchal cord. Gestational age by LMP 17 weeks 6 days with [facility] 11/11/2019 . Gestational age by current measurements 18 weeks 3 day with [facility] 11/07/2019 . FHR equals 145 beats per minute. BPD 4.5 cm 19 weeks 4 days HC 16.0 cm 18 weeks 6 days AC 12.3 cm 18 weeks 0 days FL 2.6 cm 18 weeks 0 days HL 2.8 cm 19 weeks 1 day HC/AC ratio 1.30 Estimated weight 223 grams ( 54 percentile). Anatomical assessment demonstrates normal structures including cranium, choroid plexus, cavum, cerebellum/posterior fossa, facial features, lungs, four-chamber heart/ventricular outflow tracts, diaphragm, stomach, cord insertion/three-vessel cord, kidneys/bladder, spine, and extremities. Impression: Single live intrauterine in cephalic presentation demonstrating appropriate interval growth. Anatomical assessment is complete and normal. Electronically Signed by Vik Farrell MD 06/10/2019 02:44 A
== END ==
LOC: M RAD 16:35
PROVIDERS: ATTEND Specialist
DX: Z34.82 Encounter for supervision of other normal pregnancy, second trimester (principal); Z3A.17 17 weeks gestation of pregnancy

== ENCOUNTER 2019-06-15 11:51 | Emergency (ER) | payer BC, MEDICAID ==
[~2019-06-15] VITALS: Ht 160 cm; Wt 72.7 kg
[~2019-06-15 11:51] MED LIST changes: -PREN29TA4 PO
[2019-06-15] MEDS ORDERED: PREN29TA4 PO (11:56)
[2019-06-15 13:28] VITALS: BP 130/86
[2019-06-15] MEDS ORDERED: ACETAMINOPHEN TAB 650MG DOSE (2X325MG) PO ONE (13:30)
== END 2019-06-15 13:35 | disposition home or self-care (01) ==
LOC: M ED 11:51
DX: O99.89 Other specified diseases and conditions complicating pregnancy, childbirth and the puerperium (principal); M54.31 Sciatica, right side; Z3A.18 18 weeks gestation of pregnancy; O99.512 Diseases of the respiratory system complicating pregnancy, second trimester; J45.909 Unspecified asthma, uncomplicated; Z91.030 Bee allergy status; Z87.891 Personal history of nicotine dependence

== ENCOUNTER 2019-07-25 12:54 | Emergency (ER) | payer BC, MEDICAID ==
[~2019-07-25] VITALS: Ht 160 cm; Wt 78.8 kg
[~2019-07-25 12:54] MED LIST changes: +PREN29TA4 PO
[2019-07-25 14:29] LABS: APPEARANCE, URINE CLEAR (CLEAR); BACTERIA, URINE AUTO NEGATIVE (NEGATIVE); BILIRUBIN, URINE AUTO NEGATIVE (NEGATIVE); BLOOD, URINE BLOOD NEGATIVE (NEGATIVE); COLOR, URINE STRAW (YELLOW); GLUCOSE, URINE (UA) AUTO NEGATIVE (NEGATIVE); KETONE, URINE AUTO NEGATIVE (NEGATIVE); LEUKOCYTE ESTERASE, URINE AUTO NEGATIVE (NEGATIVE); MUCUS, URINE SMALL (NEGATIVE); NITRITE, URINE AUTO NEGATIVE (NEGATIVE); PROTEIN, URINE AUTO NEGATIVE (NEGATIVE); RBC, URINE AUTO 2 /HPF (0-3); SPECIFIC GRAVITY URINE AUTO 1.013 (1.002-1.035); SQUAMOUS EPITHELIAL CELL UR AU 3 /HPF (0-6); UROBILINOGEN, URINE AUTO 0.2 mg/dL (0.0-2.0); WBC, URINE AUTO 0 /HPF (0-3)
--- NOTE | 2019-07-25 15:41 | REP ---
Clinical: Trauma. well-being. Comparison: 06/09/2019 . Findings: Examination demonstrates a single live intrauterine in breech presentation. motion is identified by technologist. Placenta is noted anterior and grade zero without evidence for placenta previa or abruption. Amniotic fluid volume is normal. Cervix measures 4.0 cm in length and appears closed. Nuchal cord cannot be excluded. Gestational age by LMP 24 weeks 3 days with [facility] 11/11/2019 . Gestational age by current measurements 24 weeks 6 days with [facility] 11/08/2019 . FHR equals 143 beats per minute. Estimated weight 741 grams ( 57th percentile). Anatomical assessment demonstrates normal structures including cranium, choroid plexus, cavum, cerebellum/posterior fossa, facial features, lungs, four-chamber heart/right ventricular outflow tract, diaphragm, stomach, cord insertion/three-vessel cord, kidneys/bladder, spine, and lower extremities. Impression: Single live intrauterine in breech presentation demonstrating appropriate interval growth. No gross abnormalities are identified. Nuchal cord cannot be excluded. Electronically Signed by Vik Farrell MD 07/25/2019 03:32 P
[2019-07-25 15:43] VITALS: BP 125/68
--- NOTE | 2019-07-25 15:45 | REP ---
Clinical: Trauma. Fall. . Technique: AP, lateral, bilateral oblique views right ankle . Findings: No acute fracture or dislocation. Skeletal structures and joint spaces are intact and normal. Ankle mortise appears stable. No subcutaneous emphysema or radiodense foreign body. Impression: Normal right ankle radiograph series. Electronically Signed by Vik Farrell MD 07/25/2019 03:37 P
== END 2019-07-25 16:23 | disposition home or self-care (01) ==
LOC: M ED 12:54
DX: O9A.212 Injury, poisoning and certain other consequences of external causes complicating pregnancy, second trimester (principal); S93.401A Sprain of unspecified ligament of right ankle, initial encounter; S30.1XXA Contusion of abdominal wall, initial encounter; V18.0XXA Pedal cycle driver injured in noncollision transport accident in nontraffic accident, initial encounter; Y93.55 Activity, bike riding; Y92.410 Unspecified street and highway as the place of occurrence of the external cause; Z3A.24 24 weeks gestation of pregnancy; J45.909 Unspecified asthma, uncomplicated; Z91.030 Bee allergy status; Z79.51 Long term (current) use of inhaled steroids

== ENCOUNTER → 2019-08-23 | Outpatient (CLI) | payer BC, MEDICAID ==
[2019-08-23 16:10] LABS: HEMOGLOBIN 12.7 g/dl (12.0-15.5); MEAN CORPUSCULAR HEMOGLOBIN 31.1 pg (27.0-33.0); MEAN CORPUSCULAR HGB CONC 34.3 g/dl (32.0-36.5); MEAN CORPUSCULAR VOLUME 90.7 fl (80.0-96.0); PLATELET COUNT, AUTOMATED 202 10^3/uL (150-450); RED BLOOD COUNT 4.08 10^6/uL (4.00-5.40); WHITE BLOOD COUNT 11.3 10^3/uL (4.0-10.0)
== END ==
LOC: M LAB 14:23
PROVIDERS: ATTEND Obstetrics & Gynecology
DX: Z34.80 Encounter for supervision of other normal pregnancy, unspecified trimester (principal); Z3A.00 Weeks of gestation of pregnancy not specified

== ENCOUNTER 2019-08-27 09:16 | Outpatient (CLI) | payer BC, MEDICAID ==
[~2019-08-27] VITALS: Ht 160 cm; Wt 80.9 kg
[2019-08-27 09:40] VITALS: BP 108/59
--- NOTE | 2019-08-27 11:25 | IPNPDOC ---
Text Note Date of Service The patient was seen on 08/27/19. NOTE Outpatient 24yo [facility] 11/11/19. Presents from home with complaints of left lower quadrant discomfort that radiates to her back. She also reports sciatica. States work made her squat on the floor yesterday cleaning bottom shelves with toothbrushes and plan to have her lifting and stocking shelves. Cat I tracing, no UC Abdomen soft, tender LLQ cw round ligament pain. Reviewed need for maternity belt/binder, support shoes, good body mechanics. Pt state she has no de la torre to buy new items. Binder ordered. Rec she obtain shoe inserts. Note written for work Discharged home. Keep next appt NV VS,Fishbone, I+O VS, Fishbone, I+O Vital Signs Date Time Temp Pulse Resp B/P (MAP) Pulse Ox O2 Delivery O2 Flow Rate FiO2 08/27/19 09:40 100 18 108/59 (75) 08/27/19 09:40 97.8 Maribel Lewis CNM Aug 27, 2019 11:25
== END 2019-08-27 11:42 | disposition home or self-care (01) ==
LOC: M LDO 09:16
PROVIDERS: ATTEND Advanced Practice Midwife
DX: O26.899 Other specified pregnancy related conditions, unspecified trimester (principal); R10.32 Left lower quadrant pain; M54.9 Dorsalgia, unspecified; R10.2 Pelvic and perineal pain; Z3A.00 Weeks of gestation of pregnancy not specified
CPT/HCPCS: G0378; G0463

== ENCOUNTER 2019-09-24 11:02 | Outpatient (CLI) | payer BC, MEDICAID ==
[~2019-09-24] VITALS: Ht 160 cm; Wt 85.3 kg
[2019-09-24 11:18] VITALS: BP 119/68
[2019-09-24] MEDS ORDERED: MAPA500T2 PO (11:19)
[2019-09-24] MEDS ORDERED: TUMS750C5 PO (11:20)
[2019-09-24] MEDS ORDERED: zarbees (11:22)
--- NOTE | 2019-09-24 11:41 | IPN ---
DATE: 09/24/2019 24-year-old female at 33 and 1/7 weeks gestation presents with cough, congestion, as well as shortness of breath 1 day prior to evaluation. She has a headache which is not relieved by 200 mg of Tylenol. She denies fevers or chills. OBJECTIVE: Blood pressure 119/68, pulse 119, respiratory rate 18, temperature 97.6. In no apparent distress. Head and neck exam: Overall normal. Nasal mucosa is injected. Lungs: Clear to auscultation. Heart: Tachycardiac, but regular rhythm. Abdomen: Nontender and gravid. heart tones category 1. Extremities: Nontender. ASSESSMENT: 24-year-old female, 33 and 1/7 weeks gestation with upper respiratory likely viral infection. PLAN: Treat with Tylenol 1000 mg time one. Encourage oral hydration. Look for improvement in headache prior to discharge.
[2019-09-24] MEDS ORDERED: ACETAMINOPHEN 500 MG TAB PO ONE (12:00)
[2019-09-24 12:41] LABS: INFLUENZA A AMPLIFICATION NEGATIVE (NEGATIVE); INFLUENZA B AMPLIFICATION NEGATIVE (NEGATIVE)
[2019-09-24 13:26] VITALS: BP 126/75
--- NOTE | 2019-09-24 13:57 | IPNPDOC ---
Text Note Date of Service The patient was seen on 09/24/19. NOTE Outpatient Feel better with adequate dose of tylenol. Cat I tracing Discharged home. Reviewed appropriate dose of tylenol. Discuss urgent or primary care if s/s worsen, evidence of bacterial infection. En pt to make next appt. VS,Fishbone, I+O VS, Fishbone, I+O Vital Signs Date Time Temp Pulse Resp B/P (MAP) Pulse Ox O2 Delivery O2 Flow Rate FiO2 09/24/19 11:18 97.6 118 18 119/68 (85) Maribel Lewis CNM Sep 24, 2019 13:57
== END 2019-09-24 13:47 | disposition home or self-care (01) ==
LOC: M LDO 11:02
PROVIDERS: ATTEND Specialist
DX: O26.893 Other specified pregnancy related conditions, third trimester (principal); R05 Cough; R51 Headache; R06.02 Shortness of breath; Z3A.33 33 weeks gestation of pregnancy
CPT/HCPCS: 59025; 87502; G0378; G0463

== ENCOUNTER → 2019-10-20 | Outpatient (REF) | payer BC ==
[~2019-10-20] MED LIST changes: +MAPA500T2 PO; +TUMS750C5 PO; +zarbees
== END ==
LOC: M SFHCWAGY 13:31
PROVIDERS: ATTEND Advanced Practice Midwife
DX: Z36.85 Encounter for antenatal screening for Streptococcus B (principal)

== ENCOUNTER 2019-11-10 05:58 | Inpatient (IN) | payer BC, OTHER, MEDICAID ==
[~2019-11-10] VITALS: Ht 160 cm; Wt 95.6 kg
[2019-11-10] VITALS (8 sets, daily range): BP systolic 132–152; BP diastolic 73–93
[2019-11-10] MEDS ORDERED: LR 1,000 ML IV SCH (07:53)
[2019-11-10] MEDS ORDERED: LACTATED RINGER'S 1000 ML IV STA (07:53)
[2019-11-10 08:29] LABS: HEMATOCRIT 38.2 % (36.0-47.0); HEMOGLOBIN 12.9 g/dl (12.0-15.5); MEAN CORPUSCULAR HEMOGLOBIN 30.2 pg (27.0-33.0); MEAN CORPUSCULAR HGB CONC 33.8 g/dl (32.0-36.5); MEAN CORPUSCULAR VOLUME 89.5 fl (80.0-96.0); PLATELET COUNT, AUTOMATED 212 10^3/uL (150-450); RED BLOOD COUNT 4.27 10^6/uL (4.00-5.40); WHITE BLOOD COUNT 14.8 10^3/uL (4.0-10.0)
--- NOTE | 2019-11-10 09:09 | HPE ---
DATE OF ADMISSION: 11/10/2019 Egale is a 2, para 1-0-0-1 with an EDC of 11/11/2019 based on first trimester ultrasound. She presents to labor and delivery today with report of onset of contractions yesterday and 0300 at had progressively gotten worse over many hours and they are now every 2-4 minutes since about 0530. She denies vaginal bleeding and leakage of fluid. The fetus has been active. Her care was initiated at [facility] in the first trimester. course complicated by prior section with a desire for trial of labor after . Remote history of asthma as a child. No current medications. History of renal disease, seizures. History of depression and marijuana use prior to . PAST MEDICAL HISTORY: Childhood asthma, seizure disorder, depression, renal failure due to an overdose of ibuprofen. SURGERIES: section, cholecystectomy, two hernia repairs. FAMILY HISTORY: Diabetes and hypertension. OBSTETRICAL HISTORY: June 2016 41 week gestation, 8 pounds 9 ounces male section for arrest of descent and chorioamnionitis. OBSTETRIC LABS: O+, antibody screen negative, rubella immune, VDRL nonreactive. Urine culture no growth. Hep B surface antigen negative. HIV negative. Hep C antibody nonreactive. Gonorrhea and chlamydia negative. Renal labs normal. Gestational diabetic screening normal at 64. Her GBS is negative. ALLERGIES: No known drug allergies. BEES. CURRENT MEDICATIONS: Ventolin inhaler and vitamin. OBJECTIVE: Temperature 98.2, pulse 86, BP is 134/91. She is uncomfortable with her contraction, deep breathing and tensing. heart rate is 135 with moderate variability, positive accelerations noted and occasional early D cell and occasional variable deceleration. Contractions are every 2-4 minutes. Her sterile vaginal exam 8-9 cm dilated, 100% effaced, -1 station. Membranes are intact with a bulging bag of water. ASSESSMENT: Intrauterine at 39-6/7. heart rate category 1. Active labor. Trial of labor after section. PLAN: Admit the patient to labor and delivery. Routine labs. Out of bed ad alice. The patient is uncertain if she wants an epidural. She has been verbally consented for emergency surgery and blood products if necessary. IV bolus has been ordered if she desires an epidural. I do anticipate continued labor progress and a spontaneous vaginal delivery.
[2019-11-10] MEDS ORDERED: OXYTOCIN 30 UNITS IN 0.9% NaCl 500ML IV BAG (J2590) As Ordered ONE (09:55)
[2019-11-10] MEDS ORDERED: METHYLERGONOVINE MALEATE 0.2 MG/ML VIAL (J2210) As Ordered ONE (11:30)
[2019-11-10] MEDS ORDERED: OXYTOCIN DRIP 30 UNITS in IV 1 EA IV SCH (12:13)
[2019-11-10] MEDS ORDERED: LIDOCAINE 1% MDV 20ML VIAL INFIL ONE (12:15)
[2019-11-10] MEDS ORDERED: METHYLERGONOVINE MALEATE 0.2 MG TAB PO PRN ×2 (12:15→16:00)
[2019-11-10] MEDS ORDERED: DOCUSATE SODIUM 100 MG CAP PO PRN (12:15)
[2019-11-10] MEDS ORDERED: IBUPROFEN 800 MG TAB PO PRN (12:15)
[2019-11-10] MEDS ORDERED: MEASLES,MUMPS,RUBELLA VACCINE INJ (MMR-II) (90707) SC SCH (12:15)
[2019-11-10] MEDS ORDERED: IBUPROFEN 600 MG TAB PO PRN (12:15)
[2019-11-10] MEDS ORDERED: METHYLERGONOVINE MALEATE 0.2 MG/ML VIAL (J2210) IM ONE (12:15)
[2019-11-10] MEDS ORDERED: DIBUCAINE 1% OINTMENT 30GM TOP PRN (12:15)
[2019-11-10] MEDS ORDERED: RHOGAM 300 MCG (1500 IU) INJ (J2790) IM SCH (12:15)
[2019-11-10] MEDS ORDERED: ACETAMINOPHEN TAB 650MG DOSE (2X325MG) PO PRN (12:15)
--- NOTE | 2019-11-10 12:29 | DN ---
DATE OF DELIVERY: 11/10/2019 Eagle is a 24-year-old, 2, para 2-0-0-2 now, who was admitted to labor and delivery in active labor. She had spontaneous rupture of membranes for clear odorless fluid at 10:44. She was also complete dilation at 10:44. She pushed to a normal spontaneous vaginal delivery of a live male infant in right occipitoanterior (KIA) position with restitution to right occipitotransverse (ROT) position at 11:21. There was a nuchal cord times one that was tight and reduced with a somersault maneuver at the time of delivery. The male mouth and nares were bulb suctioned, and he was placed on the maternal abdomen crying and active. The shoulders delivered spontaneously. The cord was clamped times two and cut by the father of the baby under my direction. Spontaneous expulsion of an intact placenta with three-vessel cord by Sinclair mechanism. Uterine hemostasis achieved with intravenous (IV) Pitocin rapid infusion and uterine fundal massage. Estimated blood loss 400 mL. Perineum and vagina inspected. Noted to have a first-degree perineal laceration. The laceration was infiltrated with 1% lidocaine and repaired with 3-0 Rapide in the usual fashion. The male weighed 3940 grams, 8 pounds 11 ounces, scores 9 and 9. Mother is going to attempt to breastfeed her son, and the family have named him Alex Bell. At the close of delivery, lap counts, needle counts, and instrument counts were correct and verified.
[2019-11-10] MEDS: ACETAMINOPHEN 500 MG TAB PO PRN (22:13)
[2019-11-11 05:20] VITALS: BP 119/67
[2019-11-11] MEDS: PRENATAL VITAMINS CHEWABLE TABLET PO SCH (08:57)
[2019-11-11 18:00] VITALS: BP 128/75
[2019-11-11] MEDS: ACETAMINOPHEN 500 MG TAB PO PRN (19:47)
[2019-11-12 06:00] VITALS: BP 126/71
[2019-11-12] MEDS: PRENATAL VITAMINS CHEWABLE TABLET PO SCH (08:30)
== END 2019-11-12 14:43 | disposition home or self-care (01) | DRG 560 ==
LOC: M LDO 05:58 → M LDI 07:45 → M OBS 13:30
PROVIDERS: ADMIT Obstetrics & Gynecology; ATTEND Advanced Practice Midwife
PROC: 10E0XZZ Delivery of Products of Conception, External Approach (ICD-10-PCS; principal; 2019-11-10)
PROC: 0HQ9XZZ Repair Perineum Skin, External Approach (ICD-10-PCS; 2019-11-10)
DX: O34.211 Maternal care for low transverse scar from previous cesarean delivery (principal); O69.1XX0 Labor and delivery complicated by cord around neck, with compression, not applicable or unspecified; Z3A.39 39 weeks gestation of pregnancy; O70.0 First degree perineal laceration during delivery; Z37.0 Single live birth

== ENCOUNTER 2020-12-26 11:56 | Emergency (ER) | payer BC, MEDICAID ==
[~2020-12-26] VITALS: Ht 160 cm; Wt 98.4 kg
[2020-12-26 11:56] VITALS: BP 120/82
[~2020-12-26 11:56] MED LIST changes: +CYCL-707 PO; -CYCL10TA PO
[2020-12-26] MEDS ORDERED: ONDANSETRON 4 MG ORAL DISINTEGRATING TAB PO ONE (12:55)
[2020-12-26 13:18] LABS: HEMATOCRIT 43.7 % (36.0-47.0); HEMOGLOBIN 14.5 g/dl (12.0-15.5); MEAN CORPUSCULAR HEMOGLOBIN 29.7 pg (27.0-33.0); MEAN CORPUSCULAR HGB CONC 33.2 g/dl (32.0-36.5); MEAN CORPUSCULAR VOLUME 89.4 fl (80.0-96.0); PLATELET COUNT, AUTOMATED 242 10^3/uL (150-450); RED BLOOD COUNT 4.89 10^6/uL (4.00-5.40)
[2020-12-26 13:46] LABS: BLOOD UREA NITROGEN 13 MG/DL (7-18); CALCIUM LEVEL 9.1 MG/DL (8.5-10.1); CARBON DIOXIDE LEVEL 25 MEQ/L (21-32); CHLORIDE LEVEL 107 MEQ/L (98-107); CREATININE FOR GFR 0.78 MG/DL (0.55-1.30); GLOMERULAR FILTRATION RATE > 60.0 (>60); GLUCOSE, FASTING 86 MG/DL (70-100); POTASSIUM SERUM 4.1 MEQ/L (3.5-5.1); SODIUM LEVEL 140 MEQ/L (136-145)
[2020-12-26 13:48] LABS: HCG, SERUM QUALITATIVE NEGATIVE (NEGATIVE)
[2020-12-26 13:56] LABS: RSV AMPLIFICATION NEGATIVE (NEGATIVE)
[2020-12-26] MEDS ORDERED: ZOFR4TAB16 PO (14:04)
== END 2020-12-26 14:22 | disposition home or self-care (01) ==
LOC: M ED 11:56
DX: B34.9 Viral infection, unspecified (principal); R53.1 Weakness; N18.9 Chronic kidney disease, unspecified; Z91.030 Bee allergy status
CPT/HCPCS: 36415; 80048; 81001; 84703; 85027; 87631; 99284; Q0162

== ENCOUNTER 2021-05-21 14:03 | Emergency (ER) | payer BC, MEDICAID ==
[~2021-05-21] VITALS: Ht 160 cm; Wt 90.4 kg
[~2021-05-21 14:03] MED LIST changes: -IBUP200T45 PO; +IBUP200T46 PO; +ZOFR4TAB16 PO
[2021-05-21] MEDS ORDERED: NS 1,000 ML IV ONE (17:05)
[2021-05-21] MEDS ORDERED: KETOROLAC 30 MG/ML 1ML VIAL IV ONE (17:05)
[2021-05-21 17:58] LABS: BASO # 0.1 10^3/uL (0.0-0.2); BASO % 0.3 % (0.0-1.0); EOS % 0.1 % (0.0-3.0); HEMATOCRIT 42.7 % (36.0-47.0); HEMOGLOBIN 14.3 g/dl (12.0-15.5); LYMPH # 2.7 10^3/uL (1.5-5.0); LYMPH % 12.1 % (24.0-44.0); MEAN CORPUSCULAR HEMOGLOBIN 29.6 pg (27.0-33.0); MEAN CORPUSCULAR HGB CONC 33.5 g/dl (32.0-36.5); MEAN CORPUSCULAR VOLUME 88.4 fl (80.0-96.0); MONO # 1.2 10^3/uL (0.0-0.8); MONO % 5.3 % (2.0-8.0); NEUTROPHILS # 18.2 10^3/uL (1.5-8.5); NEUTROPHILS % 81.6 % (36.0-66.0); PLATELET COUNT, AUTOMATED 242 10^3/uL (150-450); RED BLOOD COUNT 4.83 10^6/uL (4.00-5.40); WHITE BLOOD COUNT 22.3 10^3/uL (4.0-10.0)
[2021-05-21 18:42] LABS: ALBUMIN 3.9 GM/DL (3.2-5.2); BILIRUBIN,DIRECT 0.1 MG/DL (0.0-0.2); BILIRUBIN,TOTAL 0.7 MG/DL (0.2-1.0); TOTAL PROTEIN 7.4 GM/DL (6.4-8.2)
[2021-05-21] MEDS ORDERED: ISOVUE-370 76% 100ML VIAL As Ordered ONE (18:47)
[2021-05-21 19:51] VITALS: BP 123/88
[2021-05-21] MEDS ORDERED: ONDA4TAB6 PO (19:56)
[2021-05-21] MEDS ORDERED: AUGM875T28 PO (19:56)
[2021-05-21] MEDS ORDERED: AUGMENTIN 875 MG TAB PO ONE (20:00)
== END 2021-05-21 20:12 | disposition home or self-care (01) ==
LOC: M ED 14:03
DX: K52.9 Noninfective gastroenteritis and colitis, unspecified (principal); K44.9 Diaphragmatic hernia without obstruction or gangrene; Z90.49 Acquired absence of other specified parts of digestive tract; G43.909 Migraine, unspecified, not intractable, without status migrainosus; J45.909 Unspecified asthma, uncomplicated; Z87.440 Personal history of urinary (tract) infections; Z91.030 Bee allergy status
CPT/HCPCS: 36415; 74177; 80047; 80076; 81001; 83690; 84702; 85025; 87086; 96361; 96374; 99284; J1885; Q9967

== ENCOUNTER 2021-06-23 15:42 | Emergency (ER) | payer OTHER, BC, MEDICAID ==
[~2021-06-23] VITALS: Ht 160 cm; Wt 88.6 kg
[~2021-06-23 15:42] MED LIST changes: +IBUP200T45 PO; -IBUP200T46 PO
[2021-06-23] MEDS ORDERED: NAPROXEN 250 MG TAB PO ONE (16:30)
--- NOTE | 2021-06-23 16:48 | REP ---
INDICATION: r knee injury while at work. COMPARISON: Right tib fib series from November 21, 2018. TECHNIQUE: Five views of the right knee are provided. FINDINGS: Five views of the right knee demonstrate a area of mild soft tissue swelling medially visible on the sunrise view. No fracture or subluxation is seen. No opaque foreign body noted. There is no evidence of joint effusion. IMPRESSION: Soft tissue swelling. Otherwise negative right knee radiographs. <Electronically signed by Kaushik James > 06/23/21 0598
[2021-06-23] MEDS ORDERED: NAPR-837 PO (17:02)
[2021-06-23 17:11] VITALS: BP 144/95
== END 2021-06-23 17:19 | disposition home or self-care (01) ==
LOC: M ED 15:42
DX: S80.211A Abrasion, right knee, initial encounter (principal); S80.01XA Contusion of right knee, initial encounter; W01.0XXA Fall on same level from slipping, tripping and stumbling without subsequent striking against object, initial encounter; Y92.9 Unspecified place or not applicable; Y93.9 Activity, unspecified; Y99.0 Civilian activity done for income or pay; G43.909 Migraine, unspecified, not intractable, without status migrainosus

== ENCOUNTER 2022-07-04 16:24 | Emergency (ER) | payer BC, MEDICAID ==
[~2022-07-04] VITALS: Ht 160 cm; Wt 81.2 kg
[~2022-07-04 16:24] MED LIST changes: -IBUP200T45 PO; +IBUP200T46 PO; +NAPR-837 PO
[2022-07-04] MEDS ORDERED: dexameTHASONE 20MG/5ML VIAL (J1100 PER 1MG) IV ONE (18:30)
[2022-07-04] MEDS ORDERED: AMPICILLIN SOD/SULBACTAM SOD 3 GM in D5W MINI-BAG PLUS 100 ML IV ONE (18:30)
[2022-07-04] MEDS ORDERED: ISOVUE-370 76% 100ML VIAL As Ordered ONE (19:00)
[2022-07-04 19:09] LABS: BASO % 0.3 % (0.0-1.0); EOS # 0.1 10^3/uL (0.0-0.5); EOS % 0.8 % (0.0-3.0); HEMATOCRIT 41.6 % (36.0-47.0); HEMOGLOBIN 13.6 g/dl (12.0-15.5); LYMPH # 3.4 10^3/uL (1.5-5.0); MEAN CORPUSCULAR HEMOGLOBIN 29.1 pg (27.0-33.0); MEAN CORPUSCULAR HGB CONC 32.7 g/dl (32.0-36.5); MEAN CORPUSCULAR VOLUME 88.9 fl (80.0-96.0); MONO # 0.8 10^3/uL (0.0-0.8); MONO % 8.3 % (2.0-8.0); NEUTROPHILS # 4.9 10^3/uL (1.5-8.5); NEUTROPHILS % 53.5 % (36.0-66.0); PLATELET COUNT, AUTOMATED 258 10^3/uL (150-450); RED BLOOD COUNT 4.68 10^6/uL (4.00-5.40); WHITE BLOOD COUNT 9.2 10^3/uL (4.0-10.0)
[2022-07-04] MEDS ORDERED: MEDR4PAK PO (20:33)
[2022-07-04] MEDS ORDERED: AMOX875T2 PO (20:33)
[2022-07-04 20:58] VITALS: BP 120/75
[2022-07-05] MEDS ORDERED: AMPICILLIN SOD/SULBACTAM SOD 3 GM in D5W MINI-BAG PLUS 100 ML IV ONE (00:40)
== END 2022-07-05 01:15 | disposition home or self-care (01) ==
LOC: M ED 16:24
DX: L03.211 Cellulitis of face (principal); K08.89 Other specified disorders of teeth and supporting structures; F12.10 Cannabis abuse, uncomplicated; F10.10 Alcohol abuse, uncomplicated; Z91.030 Bee allergy status; Z79.899 Other long term (current) drug therapy
CPT/HCPCS: 70487; 80047; 84702; 85025; 87040; 96365; 96366; 96375; 99283; J0295; J1100; Q9967

== ENCOUNTER 2024-07-28 19:05 | Emergency (ER) | payer BC, MEDICAID ==
[~2024-07-28] VITALS: Ht 160 cm; Wt 90.0 kg
[~2024-07-28 19:05] MED LIST changes: +AMOX875T2 PO; +MEDR4PAK PO; +ONDA-282 PO; -ONDA4TAB6 PO
[2024-07-28 19:10] VITALS: BP 135/97
[2024-07-28 21:45] VITALS: TEMP 100
[2024-07-28 23:32] VITALS: O2SAT 100
[2024-07-29 02:18] LABS: BASO # 0.1 10^3/uL (0.0-0.2); BASO % 0.4 % (0.0-1.0); EOS # 0.2 10^3/uL (0.0-0.5); EOS % 1.7 % (0.0-3.0); HEMATOCRIT 42.8 % (36.0-47.0); HEMOGLOBIN 14.5 g/dl (12.0-15.5); LYMPH # 2.2 10^3/uL (1.5-5.0); LYMPH % 17.4 % (24.0-44.0); MEAN CORPUSCULAR HEMOGLOBIN 29.5 pg (27.0-33.0); MEAN CORPUSCULAR HGB CONC 33.9 g/dl (32.0-36.5); MEAN CORPUSCULAR VOLUME 87.2 fl (80.0-96.0); MONO # 1.5 10^3/uL (0.0-0.8); MONO % 11.5 % (2.0-8.0); NEUTROPHILS # 8.7 10^3/uL (1.5-8.5); NEUTROPHILS % 68.7 % (36.0-66.0); PLATELET COUNT, AUTOMATED 243 10^3/uL (150-450); RED BLOOD COUNT 4.91 10^6/uL (4.00-5.40); WHITE BLOOD COUNT 12.7 10^3/uL (4.0-10.0)
[2024-07-29] MEDS: ONDANSETRON 4MG ORAL DISINTEGRATING TAB PO ONE (02:23)
[2024-07-29 02:45] LABS: ALBUMIN 3.9 G/DL (3.2-5.2); ALKALINE PHOSPHATASE 96 U/L (35-104); ALT/SGPT 68 U/L (7.0-40); AST/SGOT 44 U/L (<34); BILIRUBIN,TOTAL 0.8 MG/DL (0.3-1.2); BLOOD UREA NITROGEN 14 MG/DL (9-23); CALCIUM LEVEL 9.4 MG/DL (8.5-10.1); CARBON DIOXIDE LEVEL 25 MMOL/L (20-31); CHLORIDE LEVEL 101 MMOL/L (98-107); CREATININE FOR GFR 0.87 MG/DL (0.55-1.30); GLOMERULAR FILTRATION RATE > 60.0 (>60); GLUCOSE, FASTING 105 MG/DL (60-100); POTASSIUM SERUM 3.7 MMOL/L (3.5-5.1); SODIUM LEVEL 135 MMOL/L (136-145); TOTAL PROTEIN 8.1 G/DL (5.7-8.2)
[2024-07-29 03:11] LABS: HCG, SERUM QUALITATIVE NEGATIVE (NEGATIVE)
[2024-07-29 03:25] LABS: HEPATITIS B SURFACE ANTIGEN NEGATIVE (NEGATIVE)
[2024-07-29 03:47] LABS: HEPATITIS B CORE ANTIBODY IGM NEGATIVE (NEGATIVE); HEPATITIS C VIRUS ABY INDEX 0.21 INDEX (<0.8)
[2024-07-29] MEDS ORDERED: ONDA-282 PO (04:01)
== END 2024-07-29 04:41 | disposition home or self-care (01) ==
LOC: M ED 19:05
DX: K52.9 Noninfective gastroenteritis and colitis, unspecified (principal); G43.909 Migraine, unspecified, not intractable, without status migrainosus; Z91.030 Bee allergy status; Z79.2 Long term (current) use of antibiotics; Z79.899 Other long term (current) drug therapy

== ENCOUNTER 2025-08-21 11:46 | Emergency (ER) | payer MEDICAID, SELFPAY ==
[~2025-08-21] VITALS: Ht 162.6 cm; Wt 81.8 kg
[2025-08-21 13:04] VITALS: BP 143/95; TEMP 97; O2SAT 99
== END 2025-08-21 13:12 | disposition home or self-care (01) ==
LOC: M ED 12:57
DX: B08.4 Enteroviral vesicular stomatitis with exanthem (principal); J45.909 Unspecified asthma, uncomplicated; G43.909 Migraine, unspecified, not intractable, without status migrainosus; Z79.2 Long term (current) use of antibiotics; Z79.899 Other long term (current) drug therapy; Z91.030 Bee allergy status